=== PATIENT | male | born 1975 | race Two or more races ===

== ENCOUNTER 2023-09-05 14:32 | Emergency (ER) | payer OTHER ==
[~2023-09-05] VITALS: Ht 172.7 cm; Wt 86.4 kg
[2023-09-05] MEDS: MORPHINE SULFATE INJ 2 MG/ml SYRG IM ONE (15:13)
[2023-09-05] MEDS: ONDANSETRON ODT 4 MG TAB PO ONE (15:17)
[2023-09-05] MEDS: TETANUS-DIPTH-ACEL PERTUSSIS 0.5ML SYR Tdap IM ONE (15:45)
[2023-09-05] MEDS: NEOMYCIN-BACITRACIN-POLYM UNITDOSE PKG TOP OINT TOP ONE (16:08)
[2023-09-05] MEDS: HYDROcodone-ACET 5/325MG TAB PO ONE (17:06)
[2023-09-05 17:11] VITALS: BP 111/73; PULSE 77; RESP 16; TEMP 98.3; O2SAT 97
[2023-09-05] MEDS ORDERED: CEPH500C PO (17:59)
[2023-09-05] MEDS ORDERED: IBUP1TAB5 PO (17:59)
[2023-09-07] MEDS ORDERED: ACET500T58 PO (14:50)
== END 2023-09-05 18:03 | disposition home or self-care (01) ==
LOC: ER 14:32
DX: S01.81XA Laceration without foreign body of other part of head, initial encounter (principal); Z79.899 Other long term (current) drug therapy; W20.8XXA Other cause of strike by thrown, projected or falling object, initial encounter; Y93.89 Activity, other specified; Y92.59 Other trade areas as the place of occurrence of the external cause; Y99.8 Other external cause status
CPT/HCPCS: 12014; 70450; 90471; 90715; 96372; 99285; J2270; Q0162